=== PATIENT | female | born 1970 | race Caucasian/White ===

== ENCOUNTER → 2018-08-21 17:42 | Outpatient (CLI) | payer OTHER, SELFPAY ==
[2018-08-21 18:45] LABS: Alanine Aminotransferase 18 U/L (12-78); Albumin/Globulin Ratio 1.1 (1.1-1.8); Alkaline Phosphatase 81 U/L (46-116); Anion Gap 13.6 mEq/L (5-15); Aspartate Amino Transferase 8 U/L (15-37); Basophils % 0.3 % (0.1-2.0); Bilirubin,Total 0.3 mg/dL (0.2-1.0); Blood Urea Nitrogen 12 mg/dL (7-18); Carbon Dioxide 29 mmol/L (21.0-32.0); Chloride 101 mmol/L (98-107); Chol/HDL Ratio 5.1 (1-3.5); Cholesterol 197 mg/dL (140-200); Creatinine,Serum 0.65 mg/dL (0.55-1.02); Eosinophils # 0.3 K/mm3 (0.0-0.4); Estimated Glomerular Filt Rate 98 ml/min (>60); Free T4 (Free Thyroxine) 1.01 ng/dl (0.76-1.46); GFR (African American) 118 ML/MIN (>60); Globulin 3.8 gm/dl (1.3-3.2); Glucose 98 mg/dL (74-106); HDL Cholesterol 39 mg/dL (29-89); Hematocrit 40.3 % (37.0-47.0); Hemoglobin 13.1 g/dL (12.2-16.2); LDL Cholesterol 128 mg/dL (0-130); Lymphocytes # 2.3 K/mm3 (0.7-4.5); Lymphocytes % 27.2 % (10-50); Mean Corpuscular HGB Conc 32.5 g/dL (31.8-35.4); Mean Platelet Volume 7.7 fl (7.4-10.4); Monocytes # 0.5 K/mm3 (0.1-1.0); Monocytes % 5.5 % (1.7-9.3); Neutrophils # 5.3 K/mm3 (1.8-7.8); Platelet Count 268 K/mm3 (142-424); Potassium 3.6 mmoL/L (3.5-5.1); Red Blood Count 4.68 M/mm3 (4.20-5.40); Red Cell Distribution Width 12.5 % (11.5-17.5); Sodium 140 mmol/L (136-145); Thyroid Stimulating Hormone 2.72 uIU/ml (0.358-3.740); Total Protein,Serum 7.8 gm/dL (6.4-8.2); Triglycerides 148 mg/dL (30-200); VLDL Cholesterol 30 mg/dL (0-40); White Blood Count 8.4 K/mm3 (4.8-10.8)
[2018-08-24 08:08] LABS: Vitamin D 25 Hydroxy 14.5 ng/mL (30.0-100.0)
== END ==
PROVIDERS: Visit Provider Emergency Medicine
DX: R53.83 Other fatigue (principal); E66.9 Obesity, unspecified; N95.1 Menopausal and female climacteric states; R20.2 Paresthesia of skin; Z72.0 Tobacco use; Z79.899 Other long term (current) drug therapy
CPT/HCPCS: 80053; 80061; 82652; 84439; 84443; 85025

== ENCOUNTER → 2018-09-14 15:36 | Outpatient (CLI) | payer OTHER, SELFPAY ==
--- NOTE | 2018-09-14 15:39 | MM_ITS ---
MM Dig screening mamm BI w/CAD CAD Screening COMPARISON: None, this is baseline INDICATION: There is no personal or family history of breast cancer TECHNIQUE: Standard CC and MLO images were obtained. R2 CAD reviewed. FINDINGS: The breasts are composed primarily of fat with minimal scattered fibroglandular densities in each breast. There is an oval benign-appearing nodular density upper outer quadrant left breast. Since this is a baseline study recommend patient return for 6 month follow-up left breast assure stability of this benign-appearing nodular lesion. There Is no suspicious lesion and there are no suspicious microcalcifications. There are small nodes in both axilla. IMPRESSION: Fibrofatty parenchyma with asymmetric benign-appearing nodular density left breast BI-RADS Category: 3 Probably Benign Finding Short Term Follow-up RECOMMENDED FOLLOW-UP: 6M - 6 MONTH FOLLOW-UP (A letter has been sent to the patient regarding results of the study.)
== END ==
PROVIDERS: PCP Emergency Medicine; Visit Provider Emergency Medicine
DX: Z12.31 Encounter for screening mammogram for malignant neoplasm of breast (principal)
CPT/HCPCS: 77067

== ENCOUNTER → 2018-10-05 13:24 | Outpatient (CLI) | payer OTHER, SELFPAY ==
--- NOTE | 2018-10-05 13:31 | XR_ITS ---
EXAM: XR lumbar spine min 4V HISTORY: ITS.REASON: back pain ORDERING PHYSICIAN: Shai Tamayo MD PATIENT AGE: 48 years COMPARISON: None FINDINGS: Normal alignment. No fracture or dislocation. No lytic or blastic change. There is mild degenerative disc disease at L5-S1. There are bilateral tubal ligation clips IMPRESSION: Mild degenerative disc disease L5-S1
--- NOTE | 2018-10-05 13:31 | XR_ITS ---
EXAM: XR cervical spine 5V HISTORY: ITS.REASON: neck pain, numbness and tingling in arms and hands ORDERING PHYSICIAN: Shai Tamayo MD PATIENT AGE: 48 years COMPARISON: None FINDINGS: There is normal alignment. There is mild degenerative disc disease at C5-C6. There is minimal foraminal narrowing on the right at C5-C6. No fracture or dislocation. No lytic or blastic change. IMPRESSION: Mild degenerative disc disease C5-C6 with minimal right-sided foraminal narrowing at that level otherwise negative
== END ==
PROVIDERS: PCP Emergency Medicine; Visit Provider Emergency Medicine
DX: M54.9 Dorsalgia, unspecified (principal); M54.2 Cervicalgia
CPT/HCPCS: 72050; 72110

== ENCOUNTER 2019-10-20 00:36 | Emergency (ER) | payer MEDICAID, SELFPAY ==
[2019-10-20 00:37] VITALS: BP 126/84; PULSE 101; RESP 16; TEMP 36.8; O2SAT 93; BMI 35.4
--- NOTE | 2019-10-20 00:40 | PC.NURSE ---
pt stated she thought her blood sugar might be low. FSBS obtained 167
[2019-10-20 00:45] LABS: POC Glucose,Bedside 164 (70-110)
--- NOTE | 2019-10-20 01:01 | HMH.EDMCLR ---
ED Disposition Clinical Impression: Medical clearance for incarceration Disposition: Home, Self-Care Condition on Discharge: Good Instructions: DI for Drug Abuse and Drug Addiction Additional Instructions: see pcp for follow up Referrals: Shai Tamayo MD [Primary Care Provider] - - Critical Care Critical Care Time: No Attestation: On 10/20/19, the high probability of a clinically significant, sudden or life threatening deterioration of the following system(s) required my full and direct attention, intervention and personal management. The time I documented below is in addition to time spent performing reported procedures but includes the following listed in this critical care notation. Medical Decision Making - Medical Records Medical records reviewed: Yes: I reviewed the patient's medical records. - Ruperto Inquiry Pt receiving controlled substance: No Vital Signs: 10/20/19 00:37 Temperature 98.3 F Temperature Source Oral Pulse Rate [Left Radial] 101 H Respiratory Rate 16 Blood Pressure [Right Arm] 126/84 Blood Pressure Mean [Right Arm] 98 Blood Pressure Source [Right Arm] Automatic Cuff Blood Pressure Position [Right Arm] Sitting 02 Sat by Pulse Oximetry 93 L Oxygen Delivery Method Room Air - Lab Data Lab Results 10/20/19 00:42: POC Glucose 164 H Medical Clearance HPI - General Chief complaint: Medical Clearance Stated complaint: Medical Clearance Time Seen by Provider: 10/20/19 01:01 Mode of Arrival: Ambulatory Source of Information: Patient, Law Enforcement, Medical Record Limitations: No Limitations Description of Symptoms (Recalled from ER Triage Doc. by RN): pt brought in for medical clearance. pt denies any pain and stated she used heroine this morning. - History of Present Illness HPI Narrative: no specific c/o from pt complaint: medical clearance requested Onset (ago): day(s) Reason for Medical Clearance: intoxication Place: street Alleged Intoxication: Yes Traumatic Symptoms: denies traumatic injury Associated Symptoms: denies other symptoms Treatments Prior to Arrival: none Home medications: Home Medications Medication Instructions Recorded Confirmed buprenorphine 8 mg-naloxone 2 mg 1 tab SUBLINGUAL BID tab 08/21/18 10/15/18 sublingual tablet Cholecalciferol (Vitamin D3) 1,000 unit PO DAILY 10/15/18 10/15/18 [Vitamin D3 1,000 Unit Cap] Ergocalciferol (Vitamin D2) 50,000 unit PO QWEEK 10/15/18 10/15/18 [Drisdol] Previous Rx's Medication Instructions Recorded Azithromycin [Z-Alex 250mg Tab*] 250 mg PO UD DOSE PK #6 tab 04/01/19 predniSONE [Deltasone 10mg tablet] 10 mg PO BID 3 Days #6 tab 04/01/19 Allergies/Adverse reactions: Allergies Allergy/AdvReac Type Severity Reaction Status Date / Time From Penicillin V Potassium Allergy Unknown Uncoded 10/05/18 13:03 Penicillin Allergy Unknown Uncoded 10/05/18 13:03 [facility] History - Hepatitis A Screen Drug use history?: Yes High risk sexual behaviors?: No History of sexually transmitted infection?: No Currently employed?: No Childcare worker?: No Do you have indoor plumbing?: Yes Do you have electricity?: Yes Attestation statement:: This patient has been screened for Hepatitis A risk factors. I have reviewed the patient's past medical history: Yes Medical History: Reports:: Depression Denies:: Diabetes Mellitus Type 1, Diabetes Mellitus Type 2, Internal Pacemaker, Lung Disease, Seizures Comment: obesity Laterality Cases: Left: Carpal Tunnel Release Other Surgeries: Yes: Colonoscopy. No: Pacemaker Amputation: No Fractures: No Comment: P* C/S---2000. BTL---2001. COLONOSCOPY---2009. CARPAL TUNNEL RELEASE--LEFT HAND---2009 - Social History Smoking Status: Current every day smoker Tobacco Type: cigarettes # Packs/Day (cigarettes): 1 Alcohol Intake: never Alcohol Intake Frequency:: holidays/special occasions only Substance Use Type: heroin Last Used Substance: hours (
[2019-10-20 01:14] VITALS: BP 129/83; PULSE 91; RESP 16; TEMP 36.8; O2SAT 94
== END 2019-10-20 01:23 | disposition home or self-care (01) ==
PROVIDERS: Emergency Provider Emergency Medicine; PCP Emergency Medicine
DX: F11.129 Opioid abuse with intoxication, unspecified (principal); Z79.899 Other long term (current) drug therapy; F33.1 Major depressive disorder, recurrent, moderate; Z88.0 Allergy status to penicillin; F17.210 Nicotine dependence, cigarettes, uncomplicated
CPT/HCPCS: 36415; 82962; 99282

== ENCOUNTER → 2020-06-23 15:02 | Outpatient (CLI) | payer MEDICAID, SELFPAY ==
[2020-06-23 15:40] LABS: Basophils # 0.1 K/mm3 (0-0.2); Basophils % 0.6 % (0.1-2.0); Eosinophils # 0.3 K/mm3 (0.0-0.4); Eosinophils % 3.3 % (0.1-12.0); Hematocrit 39.9 % (37.0-47.0); Hemoglobin 13.1 g/dL (12.2-16.2); Lymphocytes # 2.4 K/mm3 (0.7-4.5); Lymphocytes % 25.9 % (10-50); Mean Corpuscular Hemoglobin 28.4 pg (27.0-31.2); Mean Corpuscular Volume 86.2 fl (81-99); Mean Platelet Volume 8.2 fl (7.4-10.4); Monocytes # 0.3 K/mm3 (0.1-1.0); Monocytes % 3.5 % (1.7-9.3); Neutrophils # 6.2 K/mm3 (1.8-7.8); Neutrophils % 66.7 % (37.0-80.0); Platelet Count 313 K/mm3 (142-424); Red Blood Count 4.63 M/mm3 (4.20-5.40); Red Cell Distribution Width 13.1 % (11.5-17.5); White Blood Count 9.4 K/mm3 (4.8-10.8)
[2020-06-23 15:50] LABS: Alanine Aminotransferase 15 U/L (12-78); Albumin Level 4.3 g/dl (3.5-5.0); Albumin/Globulin Ratio 1.3 (1.1-1.8); Alkaline Phosphatase 83 U/L (38-126); Anion Gap 9.4 mEq/L (5-15); Aspartate Amino Transferase 22 U/L (14-36); Bilirubin,Total 0.3 mg/dl (0.2-1.3); Blood Urea Nitrogen 15 mg/dl (7-17); Calcium 9.6 mg/dl (8.4-10.2); Carbon Dioxide 29 mmol/L (22.0-30.0); Chloride 106 mmol/L (98-107); Cholesterol 207 mg/dl (140-200); Estimated Glomerular Filt Rate 76 ml/min (>60); GFR (African American) 92 ML/MIN (>60); Globulin 3.2 g/dL (1.3-3.2); Glucose 107 mg/dl (74-100); HDL Cholesterol 52 mg/dl (40-60); Potassium 4.4 mmoL/L (3.5-5.1); Sodium 140 mmol/L (136-145); Total Protein,Serum 7.5 g/dl (6.3-8.2); Triglycerides 192 mg/dl (30-150); VLDL Cholesterol 38 mg/dL (0-40)
[2020-06-23 16:00] LABS: Direct LDL Cholesterol 128.34 mg/dL (100-129)
[2020-06-23 16:07] LABS: Free T4 (Free Thyroxine) 1.02 ng/dl (0.78-2.19)
[2020-06-23 16:08] LABS: 25-OH Vitamin D, Total 14.3 ng/mL (30-100)
[2020-06-23 16:20] LABS: Thyroid Stimulating Hormone 0.98 uIU/mL (0.465-4.68)
== END ==
PROVIDERS: Visit Provider Emergency Medicine
DX: E55.9 Vitamin D deficiency, unspecified (principal); E66.9 Obesity, unspecified; R60.0 Localized edema
CPT/HCPCS: 80053; 80061; 82306; 84439; 84443; 85025

== ENCOUNTER → 2020-07-01 15:57 | Outpatient (CLI) | payer MEDICAID, SELFPAY ==
--- NOTE | 2020-07-01 15:57 | MM_ITS ---
PROCEDURE: MM DIG SCREENING MAMM BI W/CAD Digital Breast Tomosynthesis Included CLINICAL INDICATION: screening There is no personal or family history of breast cancer. COMPARISON: MG DIG MAMM-SCREEN JIMI from 09/14/2018 TECHNIQUE: Standard CC and MLO images and 3D Tomosynthesis was obtained. R2 CAD reviewed. FINDINGS: The breasts are composed primarily of fat with minimal scattered fibroglandular densities in each breast. There is a stable smoothly marginated nodular lesion near the axillary tail breast likely a low-lying or intramammary node. There is no suspicious lesion in either breast and no suspicious microcalcifications. There are stable small nodes in both axilla. IMPRESSION: Fatty type breast parenchyma with no suspicious lesions seen BI-RAD Category: 2 Benign Finding(s) FOLLOW-UP: 1YR 1 Year Follow-up (A letter has been sent to the patient regarding results of the study.) Dictated by: Dr. Elver Correa MD 07/06/2020 08:48 Dr. Elver Correa MD in [place] 07/06/2020 08:48
== END ==
PROVIDERS: PCP Emergency Medicine; Visit Provider Emergency Medicine
DX: Z12.31 Encounter for screening mammogram for malignant neoplasm of breast (principal)
CPT/HCPCS: 77063; 77067

== ENCOUNTER → 2020-08-04 15:24 | Outpatient (CLI) | payer MEDICAID, SELFPAY | PROVIDERS: Visit Provider Nurse Practitioner Family | DX: R82.90 Unspecified abnormal findings in urine (principal); E55.9 Vitamin D deficiency, unspecified | CPT/HCPCS: 87086; 87088; 87186 ==

== ENCOUNTER 2020-12-05 15:46 | Emergency (ER) | payer MEDICAID, SELFPAY ==
[2020-12-05 15:46] VITALS: BP 131/89; PULSE 90; RESP 16; TEMP 37.1; O2SAT 98; BMI 31.8
[2020-12-05 16:00] VITALS: BP 131/89; PULSE 90; RESP 16; TEMP 37.1; O2SAT 98; BMI 31.8
--- NOTE | 2020-12-05 16:18 | XR_ITS ---
PROCEDURE INFORMATION: Exam: XR Left Foot Exam date and time: 12/05/2020 4:18 PM Age: 50 years old Clinical indication: Injury or trauma; Fall; Blunt trauma; Foot; Left TECHNIQUE: Imaging protocol: XR Left foot. Views: 3 or more views. COMPARISON: No relevant prior studies available. FINDINGS: Bones/joints: Suspected distal left fibular fracture better seen on concurrent ankle radiograph. No fracture identified in the foot. No malalignment. Soft tissues: Moderate soft tissue swelling about the ankle. IMPRESSION: No evidence of fracture in the foot
--- NOTE | 2020-12-05 16:18 | XR_ITS ---
PROCEDURE INFORMATION: Exam: XR Left Ankle Exam date and time: 12/05/2020 4:18 PM Age: 50 years old Clinical indication: Injury or trauma; Fall; Blunt trauma; Ankle; Left TECHNIQUE: Imaging protocol: XR Left ankle. Views: 3 or more views. COMPARISON: No relevant prior studies available. FINDINGS: Bones/joints: A nondisplaced oblique fracture is suspected through the distal left fibula. It appears to enter the ankle mortise. The ankle mortise is well aligned. Soft tissues: Moderate lateral soft tissue swelling IMPRESSION: Nondisplaced distal left fibular fracture suspected
--- NOTE | 2020-12-05 17:11 | HMH.EDUTC ---
[facility] [place] Clinical Impression: Closed fracture of left distal fibula Qualifiers: Encounter type: initial encounter Fracture morphology: unspecified fracture morphology Qualified Code(s): S82.832A - Other fracture of upper and lower end of left fibula, initial encounter for closed fracture Disposition: Hospice - Home Condition on Discharge: Good Instructions: How to Use Crutches, How to Take Care of Your Splint, Fibula Shaft Fracture Additional Instructions: Rest the extremity, apply ice for 15 minutes as tolerated three or four times per day, Elevate the extremity as tolerated while you are resting. Take ibuprofen for pain. I sent in a prescription to your pharmacy. Follow up with Dr. Benitez (orthopedics). Call his office on Monday morning to get an appointment. I put in a referral but you need to call his office and schedule an appointment. Follow up with your regular doctor. GO TO THE ER FOR ANY WORSENING SYMPTOMS Prescriptions: Ibuprofen [Ibuprofen 600mg Tablet] 600 mg PO Q6HP PRN #30 tab PRN Reason: Mild Pain Transmission Status: Received by [facility] Referrals: Shai Tamayo MD [Primary Care Provider] - Jose Benitez MD [Staff Physician] - Forms: Work/School Release Time of Disposition: 17:22 Medical Decision Making - Medical Records Medical records reviewed: No: I reviewed the patient's medical records. - Ruperto Inquiry Pt receiving controlled substance: No Vital Signs: 12/05/20 15:46 12/05/20 16:00 12/05/20 17:29 Temperature 98.7 F 98.7 F 98.7 F Temperature Source Oral Oral Pulse Rate 90 Pulse Rate [Radial] 90 90 Respiratory Rate 16 16 16 Blood Pressure 131/89 Blood Pressure [Right Arm] 131/89 131/89 Blood Pressure Mean [Right Arm] 103 103 Blood Pressure Source [Right Arm] Automatic Cuff Blood Pressure Position [Right Arm] Sitting Sitting 02 Sat by Pulse Oximetry 98 98 Oxygen Delivery Method Room Air - Radiology Data #1 Image(s): Ankle Image Reviewed: Yes I reviewed the patient's radiology image, Yes I have reviewed radiologist's interpretation Preliminary Findings: Abnormal PROCEDURE INFORMATION: Exam: XR Left Ankle Exam date and time: 12/05/2020 4:18 PM Age: 50 years old Clinical indication: Injury or trauma; Fall; Blunt trauma; Ankle; Left TECHNIQUE: Imaging protocol: XR Left ankle. Views: 3 or more views. COMPARISON: No relevant prior studies available. FINDINGS: Bones/joints: A nondisplaced oblique fracture is suspected through the distal left fibula. It appears to enter the ankle mortise. The ankle mortise is well aligned. Soft tissues: Moderate lateral soft tissue swelling IMPRESSION: Nondisplaced distal left fibular fracture suspected [facility] [place] - General Stated complaint: AO 12/05/20 lt foot pain Time Seen by Provider: 12/05/20 15:55 Mode of Arrival: Ambulatory Source of Information: Patient Description of Symptoms (Recalled from Triage Doc. by RN): C/O LT ANKLE PAIN STATES LAST NIGHT ROLLED LT ANKLE. SWELLING AND PAIN HEENT Symptoms (Recalled from RN notes): No Resp Symptoms (Recalled from RN notes): No Skin Symptoms (Recalled from RN notes): No MS Symptoms (Recalled from RN notes): Yes Functional Status (Recalled from RN notes): WNL - History of Present Illness Provider Complaint: She states that last night she tripped while going out her door (she missed a step down) and it caused her to twist her left ankle and fall. She has had left ankle and foot pain since then. She states that when she tried to walk this morning she had worse pain. - Related Data Previous Rx's Medication Instructions Recorded cholecalciferol (vitamin D3) 25 25 mcg PO DAILY #30 cap 06/26/20 mcg (1,000 unit) capsule ergocalciferol (vitamin D2) 1,250 1,250 mcg PO WEEKLY #5 cap 06/26/20 mcg (50,000 unit) capsule trazodone 50 mg tab
[2020-12-05 17:29] VITALS: BP 131/89; PULSE 90; RESP 16; TEMP 37.1; O2SAT 98
== END 2020-12-05 17:46 | disposition hospice, home (50) ==
PROVIDERS: Emergency Provider Nurse Practitioner Family; PCP Emergency Medicine
DX: S82.832A Other fracture of upper and lower end of left fibula, initial encounter for closed fracture (principal); X50.1XXA Overexertion from prolonged static or awkward postures, initial encounter; Y92.019 Unspecified place in single-family (private) house as the place of occurrence of the external cause; F17.210 Nicotine dependence, cigarettes, uncomplicated
CPT/HCPCS: 29515; 73610; 73630; 99203; G0463

== ENCOUNTER → 2020-12-08 15:17 | Outpatient (CLI) | payer MEDICAID, SELFPAY ==
--- NOTE | 2020-12-08 15:22 | XR_ITS ---
PROCEDURE: XR KNEE LT 3V CLINICAL INDICATION: fall on 12/04/20 Pain COMPARISON: No exams were available for comparison FINDINGS: Minimal osteoarthritic changes of the medial compartment No fracture or dislocation Other findings:None. IMPRESSION: No acute findings. Dictated by: Lane Souza MD 12/08/2020 15:32 Lane Souza MD in [place] 12/08/2020 15:32
== END ==
PROVIDERS: PCP Emergency Medicine; Visit Provider Orthopaedic Surgery
DX: M25.562 Pain in left knee (principal); W19.XXXA Unspecified fall, initial encounter
CPT/HCPCS: 73562

== ENCOUNTER → 2020-12-16 08:19 | Outpatient (CLI) | payer MEDICAID, SELFPAY ==
--- NOTE | 2020-12-16 08:23 | XR_ITS ---
PROCEDURE: XR ANKLE LT MIN 3V CLINICAL INDICATION: left distal fibula fx; in cast COMPARISON: CR XR ANKLE LT MIN 3V from 12/05/2020 FINDINGS: Cast has been placed. There is a nondisplaced fracture of distal fibula oblique in nature with good alignment. The ankle mortise is preserved. The joint spaces are well-preserved. No significant degenerative/arthritic changes. No erosive changes evident. Other findings:None. IMPRESSION: Good alignment status post closed reduction distal fibular fracture Dictated by: Lane Souza MD 12/16/2020 08:52 Lane Souza MD in [place] 12/16/2020 08:52
== END ==
PROVIDERS: PCP Emergency Medicine; Visit Provider Orthopaedic Surgery
DX: S82.832A Other fracture of upper and lower end of left fibula, initial encounter for closed fracture (principal)
CPT/HCPCS: 73610

== ENCOUNTER → 2020-12-30 09:38 | Outpatient (CLI) | payer MEDICAID, SELFPAY ==
--- NOTE | 2020-12-30 09:42 | XR_ITS ---
PROCEDURE: XR ANKLE LT MIN 3V CLINICAL INDICATION: left distal fibula fx; out of cast Follow-up fracture COMPARISON: CR XR ANKLE LT MIN 3V from 12/05/2020 CR XR ANKLE LT MIN 3V from 12/16/2020 FINDINGS: The cast has been removed. Nondisplaced distal fibular fracture once again noted. The fracture line is less distinct but slightly more prominent and may be due to the hyperemic process of early healing. The joint spaces are well-preserved. No significant degenerative/arthritic changes. No erosive changes evident. Other findings:The ankle mortise is preserved and non widened IMPRESSION: Good alignment nondisplaced oblique distal fibular fracture as described above. Dictated by: Lane Souza MD 12/30/2020 11:55 Lane Souza MD in [place] 12/30/2020 11:55
== END ==
PROVIDERS: PCP Emergency Medicine; Visit Provider Orthopaedic Surgery
DX: S82.832A Other fracture of upper and lower end of left fibula, initial encounter for closed fracture (principal)
CPT/HCPCS: 73610

== ENCOUNTER 2020-12-30 10:32 | Outpatient (RCR) | payer MEDICAID, SELFPAY | END 2020-12-30 11:20 | disposition home or self-care (01) | LOC: PT 10:32 | PROVIDERS: Visit Provider Orthopaedic Surgery | DX: S82.832D Other fracture of upper and lower end of left fibula, subsequent encounter for closed fracture with routine healing (principal) | CPT/HCPCS: 97760 ==

== ENCOUNTER → 2021-02-10 13:08 | Outpatient (CLI) | payer MEDICAID, SELFPAY ==
--- NOTE | 2021-02-10 13:17 | XR_ITS ---
PROCEDURE: XR ANKLE LT MIN 3V CLINICAL INDICATION: left distal fibula fx COMPARISON: CR XR ANKLE LT MIN 3V from 12/05/2020 CR XR ANKLE LT MIN 3V from 12/16/2020 CR XR ANKLE LT MIN 3V from 12/30/2020 FINDINGS: There is an oblique nondisplaced fracture involving the distal fibula. Fracture line its still visible but somewhat less apparent. Ankle mortise is preserved. The joint spaces are well-preserved. No significant degenerative/arthritic changes. No erosive changes evident. Other findings:None. IMPRESSION: Healing nondisplaced distal fibular fracture Dictated by: Lane Souza MD 02/10/2021 16:29 Lane Souza MD in [place] 02/10/2021 16:29
== END ==
PROVIDERS: PCP Emergency Medicine; Visit Provider Orthopaedic Surgery
DX: S82.832A Other fracture of upper and lower end of left fibula, initial encounter for closed fracture (principal)
CPT/HCPCS: 73610

== ENCOUNTER 2021-02-11 15:00 | Outpatient (RCR) | payer MEDICAID, SELFPAY ==
--- NOTE | 2021-01-04 09:57 | HMH.PTOPEV ---
PT Outpatient Evaluation Rehab PT Outpatient Evaluation Start: 01/04/21 08:05 Freq: Status: Active Protocol: Document 01/04/21 08:38 PHOSHAHNAZ (Rec: 01/04/21 08:49 PHORNE [id number]) Electronically Signed By Celso Kauffman, PT 01/04/21 08:38 Outpatient Therapy Subjective History Subjective History Pt is 50 year old female who presents s/p L distal fibula fracture ~1 mos ago. Pt reports she fell down 1 step going outside of her home and felt pain in her L ankle after the fall. Pt states her pain is intermittent and 2/10 this morning. She reports sharp pain at 5/10 at worse after standing too long. Pain is alleviated by propping her L foot up. Eval completed by Treva Santiago, SHARON. Chief Complaint Pain Symptom Type Sharp Symptoms Relieved By Rest/Positioning Symptoms Aggravated By Standing Prior Functional Limitations None Current Functional Limitations Standing,Recreation Activity Symptom Description Intermittent Level of pain today (0-10) 2 Pain scale - at its best (0-10) 1 Pain scale - at its worst (0-10) 5 Ankle/Foot Eval Palpation Tenderness left Ankle/Foot Palpation Findings Tenderness Ankle/Foot Palpation Overall Comment TTP L lateral malleolus ROM Ankle/Foot Dorsiflexion w/Knee Extended 3 Active Range Motion (degrees) Ankle/Foot Plantar Flexion Active Range 40 of Motion (degrees) Ankle/Foot Eversion Active Range of 5 Motion (degrees) Ankle/Foot Inversion Active Range of 30 Motion (degrees) Ankle/Foot ROM Limitations Pain Great Toe ROM Reason Not Measured Within Functional Limits MMT right Ankle Dorsiflexion Strength Grade 5 Normal Ankle Plantarflexion Strength Grade 5 Normal Foot Eversion Strength Grade 5 Normal Foot Inversion Strength Grade 5 Normal Ankle Dorsiflexors Muscle Tone Normal Description left Ankle Dorsiflexion Strength Grade 5 Normal Ankle Plantarflexion Strength Grade 5 Normal Foot Eversion Strength Grade 4 Good Foot Inversion Strength Grade 5 Normal Outpatient Therapy Assessment Impairments Problems/Impairmments Palpation Tenderness,Impaired Range of Motion,Impaired Strength,Impaired Standing, Subjective C/O Pain,Impaired Self Care/Self Management Prognosis R
--- NOTE | 2021-02-02 10:48 | HMH.RHREAS ---
Rehab Reassessment Rehab OP Re-assessment Start: 02/02/21 10:38 Freq: Status: Active Protocol: Document 02/02/21 10:40 LAVINIA (Rec: 02/02/21 10:44 LAVINIA [id number]) Electronically Signed By Celso Kauffman, PT 02/02/21 10:40 Rehab Re-assessment Subjective Subjective Pt reports less pain overall, remains mildly tender around the L ankle. Objective Objective Notes L ankle AROM (in deg): DF= 0- 14, PF= 0-38, INV= 0-25, EVER= 0-15 MMT L ankle grossly 5/5 except EVER= 4+/5 Assessment Progress Assessment Progressing as Expected Assessment Notes Improved AROM and strength, Continues to ambulate with antalgic gait at this time. Patient goals met ST,2,3,4,5 Goals Not Met LT,2,3,4,5 Revised Goals none Plan Plan Continue per initial POC. Frequency of Therapy 2 x/wk Duration of therapy 8 wks Time and Billing Re-Eval Time 15 Re-Eval Billing Units 1 PHYSICIAN CERTIFICATION: I certify the specified therapy services for Justina Rodriguez are required, authorized, and reviewed every 30 days.
== END 2021-02-11 15:05 | disposition home or self-care (01) ==
LOC: PT 15:00
PROVIDERS: PCP Emergency Medicine; Visit Provider Orthopaedic Surgery
DX: S82.832A Other fracture of upper and lower end of left fibula, initial encounter for closed fracture (principal)
CPT/HCPCS: 97010; 97014; 97110; 97140; 97163; 97164; G0283

== ENCOUNTER → 2022-01-19 10:20 | Outpatient (CLI) | payer MEDICAID, SELFPAY ==
[2022-01-19 16:15] LABS: Basophils # 0.1 K/mm3 (0-0.2); Eosinophils # 0.4 K/mm3 (0.0-0.4); Eosinophils % 4.6 % (0.1-12.0); Hematocrit 41.5 % (37.0-47.0); Hemoglobin 13.8 g/dL (12.2-16.2); Lymphocytes # 2.1 K/mm3 (0.7-4.5); Lymphocytes % 24.4 % (10-50); Mean Corpuscular HGB Conc 33.4 g/dL (31.8-35.4); Mean Corpuscular Hemoglobin 28.2 pg (27.0-31.2); Mean Corpuscular Volume 84.4 fl (81-99); Mean Platelet Volume 9.2 fl (7.4-10.4); Monocytes # 0.4 K/mm3 (0.1-1.0); Monocytes % 4.5 % (1.7-9.3); Neutrophils # 5.7 K/mm3 (1.8-7.8); Neutrophils % 65.5 % (37.0-80.0); Platelet Count 337 K/mm3 (142-424); Red Blood Count 4.91 M/mm3 (4.20-5.40); Red Cell Distribution Width 12.5 % (11.5-17.5); White Blood Count 8.6 K/mm3 (4.8-10.8)
[2022-01-19 16:19] LABS: Alanine Aminotransferase 18 U/L (12-78); Albumin Level 4.2 g/dl (3.5-5.0); Albumin/Globulin Ratio 1.4 (1.1-1.8); Alkaline Phosphatase 89 U/L (38-126); Anion Gap 15.5 mEq/L (5-15); Aspartate Amino Transferase 28 U/L (14-36); Bilirubin,Total 0.3 mg/dl (0.2-1.3); Blood Urea Nitrogen 11 mg/dl (7-17); Calcium 9.4 mg/dl (8.4-10.2); Carbon Dioxide 25 mmol/L (22.0-30.0); Chloride 101 mmol/L (98-107); Chol/HDL Ratio 4.4 (1-3.5); Cholesterol 217 mg/dl (140-200); Estimated Glomerular Filt Rate 106 ml/min (>60); GFR (African American) 128 ML/MIN (>60); Globulin 3.1 g/dL (1.3-3.2); Glucose 108 mg/dl (74-100); HDL Cholesterol 49 mg/dl (40-60); Potassium 4.5 mmoL/L (3.5-5.1); Sodium 137 mmol/L (136-145); Total Protein,Serum 7.3 g/dl (6.3-8.2); Triglycerides 124 mg/dl (30-150); VLDL Cholesterol 25 mg/dL (0-40)
[2022-01-19 16:30] LABS: Direct LDL Cholesterol 136.73 mg/dL (100-129)
[2022-01-19 16:35] LABS: Free T4 (Free Thyroxine) 1.08 ng/dl (0.78-2.19)
[2022-01-19 16:36] LABS: 25-OH Vitamin D, Total 28.3 ng/mL (30-100)
[2022-01-19 16:50] LABS: Thyroid Stimulating Hormone 2.05 uIU/mL (0.465-4.68)
[2022-01-19 17:06] LABS: Hemoglobin A1C 5.6 % (4.0-6.0)
== END ==
PROVIDERS: PCP Emergency Medicine; Visit Provider Emergency Medicine
DX: E55.9 Vitamin D deficiency, unspecified (principal); E66.9 Obesity, unspecified; Z68.35 Body mass index [BMI] 35.0-35.9, adult
CPT/HCPCS: 80053; 80061; 82306; 83036; 84439; 84443; 85025

== ENCOUNTER → 2022-03-24 11:17 | Outpatient (CLI) | payer MEDICAID, SELFPAY ==
--- NOTE | 2022-03-24 11:27 | XR_ITS ---
FINAL REPORT CLINICAL HISTORY: BILATERAL foot pain FINDINGS: Left foot Three views were obtained. There is no acute fracture or dislocation. The joint spaces appear normal. No soft tissue abnormality is identified. There is a small to moderate plantar spur. IMPRESSION: No acute process. Reviewed, Interpreted and Dictated by Brian Reyna MD Transcribed by Emeli Vargas Authenticated and [facility]
--- NOTE | 2022-03-24 11:27 | XR_ITS ---
FINAL REPORT CLINICAL HISTORY: BILATERAL foot pain FINDINGS: Right foot Three views were obtained. There is no acute fracture or dislocation. The joint spaces appear normal. No soft tissue abnormality is identified. There is a moderate plantar spur. IMPRESSION: No acute process. Reviewed, Interpreted and Dictated by Brian Reyna MD Transcribed by Emeli Vargas Authenticated and [facility]
== END ==
PROVIDERS: PCP Emergency Medicine; Visit Provider Nurse Practitioner Family
DX: M79.671 Pain in right foot (principal); M79.672 Pain in left foot
CPT/HCPCS: 73630

== ENCOUNTER 2022-03-31 09:04 | Day surgery (SDC) | payer MEDICAID, SELFPAY ==
[2022-03-31 09:25] VITALS: BP 148/76; PULSE 58; RESP 18; TEMP 36.4; O2SAT 99; BMI 33.6
--- NOTE | 2022-03-31 09:50 | P.PN_ITS ---
[facility] Disclaimer: The information contained in this section may have been updated after the patient was seen, as this information can be updated by other users. Medical History Hyperlipidemia Surgical History History of carpal tunnel surgery of left wrist History of section History of colonoscopy Hx of tubal ligation Family History Other Family history of cancer Family history of diabetes mellitus type II Social History Smoking Status: Current every day smoker tobacco type: cigarettes packs per day: 2 pack-years: 9 alcohol intake: never substance use type: former substance user, heroin and opiates counseling provided: support program current occupational status: disabled Travel in the last 8 weeks: None adopted: No caregiver/support person: No foster care: No household members: none housing: apartment lives independently: Yes marital status: single service: No [place] [facility]: No caffeine: No special beatriz needs: No agree to transfusion: No do you feel safe at home: Yes victim of physical abuse: No victim of emotional abuse: No victim of sexual abuse: No would you like helpful sources: No [facility] Anesthesia Checklist Patient Identification Patient Identification: Arm Band Structural Data Admitted From: Home Planned Operative Procedure/s: colonoscopy Consent for Planned Operative Procedure(s) Verified: Yes Verified Documents: Surgical Consent and History and Physical NPO Status Verified Time NPO: 00:00 Additional verifications Anesthesia Reactions: No Airway Assessment C-Spine Mobility Assessed: Yes TMJ Mobility Assessed: Yes Dentition: Good Dentition Neurological Assessment Level of Consciousness: Awake and Alert Anesthesia Plan Anesthesia Risk discussed: Yes Anesthesia Plan: Verified ASA Class: II Anesthesia Type: MAC
[2022-03-31 09:55] VITALS: O2SAT 99
--- NOTE | 2022-03-31 10:06 | HMH.SCOPE ---
Procedure: Date: 03/31/22 Patient Date of :: 1970 Procedure Performed:: Screening colonoscopy Indications:: Personal history of polyps Performing Provider:: Atif Penn MD Referring Provider:: Shai Tamayo Sedation:: Propofol Procedure:: After placing the patient in the left lateral decubitus position, the colonoscopy was gently inserted into the rectum and under direct visualization advanced to the cecum which was identified by transillumination in the right lower quadrant, identification of the ileocecal valve, appendiceal orifice, and cecal strap. Color, texture, mucosa, and anatomy of the colon were carefully examined with the scope. Findings:: Anal canal: normal Rectum: normal Sigmoid colon: normal without polyps or inflammatory changes, residual stool noted Descending colon: normal without polyps or inflammatory changes, residual stool noted Splenic flexure: normal Transverse colon: normal without polyps or inflammatory changes, residual stool noted Hepatic flexure: normal Ascending colon: normal without polyps or inflammatory changes, residual stool noted Cecum: normal Terminal ileum: not visualized Impression: Normal colonoscopy Prep less than optimal due to not completing the colon prep Specimens:: None Recommendations:: Repeat examination in about FIVE years or so, sooner if clinically indicated Complications:: None Estimated blood obtained (mL): 0
[2022-03-31 10:07] VITALS: BP 141/80; PULSE 78; RESP 16; TEMP 36.3; O2SAT 96
[2022-03-31 10:17] VITALS: BP 163/85; PULSE 63; RESP 18; O2SAT 98
[2022-03-31 10:27] VITALS: BP 141/75; PULSE 64; RESP 18; O2SAT 97
[2022-03-31 10:37] VITALS: BP 149/91; PULSE 64; RESP 18; O2SAT 97
== END 2022-03-31 11:03 | disposition home or self-care (01) ==
PROVIDERS: PCP Emergency Medicine; Visit Provider Internal Medicine Gastroenterology
PROC: 0DJD8ZZ Inspection of Lower Intestinal Tract, Via Natural or Artificial Opening Endoscopic (ICD-10-PCS; CPT 45378; principal; 2022-03-31 10:00)
DX: Z12.11 Encounter for screening for malignant neoplasm of colon (principal); Z86.010 Personal history of colon polyps; Z72.0 Tobacco use
CPT/HCPCS: 45378

== ENCOUNTER 2022-06-09 11:11 | Emergency (ER) | payer MEDICAID, SELFPAY ==
--- NOTE | 2022-06-09 11:25 | EXP.UTC ---
Discharge Plan Disposition Patient Disposition: Home, Self-Care Condition: Good Prescriptions Prescriptions: New azithromycin [Zithromax] 250 mg tablet 250 mg PO UD DOSE PK Qty: 6 0RF Rx Instructions: Take two (2) tablets today, then one (1) tablet days #2 thru #5 benzonatate [benzonatate] 100 mg capsule 100 mg PO TIDP PRN (Reason: Cough) Qty: 30 0RF prednisone 10 mg tablet 10 mg PO BID 4 Days Qty: 8 0RF No Action diclofenac sodium 1 % gel 4 g topical QID PRN (Reason: pain ) 30 Days Qty: 100 2RF Rx Instructions: apply to single, ankle, foot; for foot includes sole/toes/top of foot gabapentin 600 mg tablet 600 mg PO TID Qty: 90 2RF cholecalciferol (vitamin D3) 50 mcg (2,000 unit) capsule 50 mcg PO DAILY Qty: 90 3RF ergocalciferol (vitamin D2) 1,250 mcg (50,000 unit) capsule 1,250 mcg PO WEEKLY Qty: 13 3RF atorvastatin 10 mg tablet 10 mg PO HS meloxicam 7.5 mg tablet 7.5 mg PO DAILY Referrals Follow up/Referrals: Shai Tamayo MD [Primary Care Provider] - See instructions Activity Restrictions/Add. Instructions Additional Instructions/Restrictions: Drink plenty of fluids. Take tylenol or ibuprofen for pain or fever. Take the medications as directed. Follow up with your regular doctor. GO TO THE ER FOR ANY WORSENING SYMPTOMS Clinical Impressions Clinical Impression: Pharyngitis, Bronchitis Instructions Patient Instructions: DI for Pharyngitis/Tonsillopharyngitis -- Adult Discharge ED Provider: Juaquin Carlton [facility] General Stated complaint: Sore throat fever cough congestion drainage Time Seen by Provider: 06/09/22 11:25 History of Present Illness Provider Complaint: She states that for the past 2 days she has had a sore throat, sinus congestion and a cough. She has been exposed to strep throat in her home. Related Data Home Medications Medication Instructions Recorded Confirmed atorvastatin 10 mg tablet 10 mg PO HS Cholesterol 03/02/22 05/18/22 meloxicam 7.5 mg tablet 7.5 mg PO DAILY Pain 03/31/22 05/18/22 Previous Rx's Medication Instructions Recorded cholecalciferol (vitamin D3) 50 50 mcg PO DAILY vitamin D 02/14/22 mcg (2,000 unit) capsule deficiency #90 caps ergocalciferol (vitamin D2) 1,250 1,250 mcg PO WEEKLY vitamin D 02/14/22 mcg (50,000 unit) capsule deficiency #13 caps diclofenac sodium 1 % topical gel 4 g topical QID PRN pain 30 days 03/22/22 #100 grams gabapentin 600 mg tablet 600 mg PO TID #90 tabs 05/18/22 azithromycin 250 mg tablet 250 mg PO UD DOSE PK #6 tabs 06/09/22 (Zithromax) benzonatate 100 mg capsule 100 mg PO TIDP PRN Cough #30 caps 06/09/22 prednisone 10 mg tablet 10 mg PO BID 4 days #8 tabs 06/09/22 Allergies Allergy/AdvReac Type Severity Reaction Status Date / Time Penicillins Allergy Verified 03/22/22 14:28 [facility] Disclaimer: The information contained in this section may have been updated after the patient was seen, as this information can be updated by other users. Medical History Hyperlipidemia Surgical History History of carpal tunnel surgery of left wrist History of section History of colonoscopy Hx of tubal ligation Family History Other Family history of cancer Family history of diabetes mellitus type II Social History Smoking Status: Current every day smoker tobacco type: cigarettes packs per day: 2 pack-years: 9 alcohol intake: never substance use type: former substance user, heroin and opiates counseling provided: support program current occupational status: disabled Travel in the last 8 weeks: None adopted: No caregiver/support person: No foster care: No household members: none housing: apartment lives inde
[2022-06-09 11:26] VITALS: BP 142/73; PULSE 79; RESP 18; TEMP 36.8; O2SAT 99; BMI 32.8
[2022-06-09 11:38] LABS: UTC Strep Screen (Rapid) Negative (Negative)
[2022-06-09 12:09] VITALS: BP 140/70; PULSE 79; RESP 18; TEMP 36.8; O2SAT 99
== END 2022-06-09 12:17 | disposition home or self-care (01) ==
PROVIDERS: Emergency Provider Nurse Practitioner Family; PCP Emergency Medicine
DX: J40 Bronchitis, not specified as acute or chronic (principal); J02.9 Acute pharyngitis, unspecified
CPT/HCPCS: 87880; 99212; 99213; C9803; G0463; U0003; U0005

== ENCOUNTER → 2022-10-05 23:17 | Outpatient (CLI) | payer MEDICAID, SELFPAY | PROVIDERS: PCP Emergency Medicine; Visit Provider Emergency Medicine | DX: N39.0 Urinary tract infection, site not specified (principal) | CPT/HCPCS: 87086 ==

== ENCOUNTER 2023-04-26 16:59 | Outpatient (CLI) | payer MEDICAID, SELFPAY ==
[2023-04-26 12:15] LABS: Basophils # 0.1 K/mm3 (0-0.2); Basophils % 0.6 % (0.1-2.0); Eosinophils # 0.3 K/mm3 (0.0-0.4); Eosinophils % 4.2 % (0.1-12.0); Hematocrit 38.2 % (37.0-47.0); Hemoglobin 12.8 g/dL (12.2-16.2); Lymphocytes % 37.5 % (10-50); Mean Corpuscular HGB Conc 33.5 g/dL (31.8-35.4); Mean Corpuscular Hemoglobin 28.4 pg (27.0-31.2); Mean Corpuscular Volume 84.8 fl (81-99); Mean Platelet Volume 8.5 fl (7.4-10.4); Monocytes # 0.4 K/mm3 (0.1-1.0); Monocytes % 5.1 % (1.7-9.3); Neutrophils # 4.2 K/mm3 (1.8-7.8); Neutrophils % 52.6 % (37.0-80.0); Platelet Count 270 K/mm3 (142-424); Red Blood Count 4.51 M/mm3 (4.20-5.40); Red Cell Distribution Width 12.7 % (11.5-17.5)
[2023-04-26 13:19] LABS: Alanine Aminotransferase 15 U/L (12-78); Albumin Level 3.9 g/dl (3.5-5.0); Albumin/Globulin Ratio 1.6 (1.1-1.8); Alkaline Phosphatase 62 U/L (38-126); Anion Gap 11.4 mEq/L (5-15); Aspartate Amino Transferase 25 U/L (14-36); Bilirubin,Total 0.4 mg/dl (0.2-1.3); Blood Urea Nitrogen 14 mg/dl (7-17); Calcium 8.9 mg/dl (8.4-10.2); Carbon Dioxide 24 mmol/L (22.0-30.0); Chloride 103 mmol/L (98-107); Chol/HDL Ratio 4.7 (1-3.5); Cholesterol 198 mg/dl (140-200); Estimated Glomerular Filt Rate 88 ml/min (>60); GFR (African American) 106 ML/MIN (>60); Globulin 2.5 g/dL (1.3-3.2); Glucose 93 mg/dl (74-100); HDL Cholesterol 42 mg/dl (40-60); Potassium 4.4 mmoL/L (3.5-5.1); Sodium 134 mmol/L (136-145); Total Protein,Serum 6.4 g/dl (6.3-8.2); Triglycerides 95 mg/dl (30-150); VLDL Cholesterol 19 mg/dL (0-40)
[2023-04-26 13:30] LABS: Direct LDL Cholesterol 120.32 mg/dL (100-129)
[2023-04-26 13:42] LABS: 25-OH Vitamin D, Total 27.1 ng/mL (30-100)
[2023-04-26 13:49] LABS: Thyroid Stimulating Hormone 1.24 uIU/mL (0.465-4.68)
== END 2023-04-26 23:59 ==
LOC: LAB.DROPOF 17:00
PROVIDERS: PCP Nurse Practitioner Family; Visit Provider Nurse Practitioner Family
DX: E55.9 Vitamin D deficiency, unspecified (principal); E66.9 Obesity, unspecified; Z68.30 Body mass index [BMI] 30.0-30.9, adult; Z79.899 Other long term (current) drug therapy
CPT/HCPCS: 80053; 80061; 82306; 84443; 85025

== ENCOUNTER → 2023-05-18 14:35 | Outpatient (CLI) | payer MEDICAID, SELFPAY | LOC: SL 14:37 | PROVIDERS: PCP Nurse Practitioner Family; Visit Provider Nurse Practitioner Family | DX: G47.36 Sleep related hypoventilation in conditions classified elsewhere (principal); R06.83 Snoring | CPT/HCPCS: G0399 ==

== ENCOUNTER → 2023-06-18 20:18 | Outpatient (CLI) | payer MEDICAID, SELFPAY | LOC: SL 20:21 | PROVIDERS: PCP Nurse Practitioner Family; Visit Provider Nurse Practitioner Family | DX: G47.30 Sleep apnea, unspecified (principal); G47.36 Sleep related hypoventilation in conditions classified elsewhere; R40.0 Somnolence; R06.83 Snoring | CPT/HCPCS: 95810 ==

== ENCOUNTER 2023-07-26 13:51 | Outpatient (CLI) | payer MEDICAID, SELFPAY ==
--- NOTE | 2023-07-26 13:54 | XR_ITS ---
FINAL REPORT CLINICAL HISTORY: R Foot pain FINDINGS: Right foot Three views were obtained. There is no acute fracture or dislocation. There are mild degenerative changes at the 1st metatarsophalangeal joint. Plantar calcaneal spur is identified. No soft tissue abnormality is identified. IMPRESSION: Mild degenerative changes. Reviewed, Interpreted and Dictated by Derrek Travis III, MD Transcribed by Emeli Vargas Authenticated and [facility]
--- NOTE | 2023-07-26 13:54 | XR_ITS ---
FINAL REPORT CLINICAL HISTORY: Foot Pain FINDINGS: Left foot Three views were obtained. There is no acute fracture or dislocation. There are mild degenerative changes at the 1st metatarsophalangeal joint. Plantar calcaneal spur is identified. No soft tissue abnormality is identified. IMPRESSION: Mild degenerative changes. Reviewed, Interpreted and Dictated by Derrek Travis III, MD Transcribed by Emeli Vargas Authenticated and [facility]
--- NOTE | 2023-07-26 13:54 | XR_ITS ---
FINAL REPORT CLINICAL HISTORY: hypoxemia FINDINGS: Two views of the chest were obtained. The heart size and pulmonary vascularity are within normal limits. The mediastinum is normal. No acute pulmonary abnormality is identified. There is no pneumothorax. The bony thorax is intact. IMPRESSION: No active cardiopulmonary disease. Reviewed, Interpreted and Dictated by Derrek Travis III, MD Transcribed by Emeli Vargas Authenticated and [facility]
== END 2023-07-26 23:59 ==
LOC: RAD 13:52
PROVIDERS: PCP Nurse Practitioner Family; Visit Provider Specialist
DX: G47.36 Sleep related hypoventilation in conditions classified elsewhere (principal); R40.0 Somnolence; M79.671 Pain in right foot; M79.672 Pain in left foot; Z72.0 Tobacco use
CPT/HCPCS: 71046; 73630

== ENCOUNTER 2023-07-31 09:42 | Outpatient (CLI) | payer MEDICAID, SELFPAY ==
[2023-07-31 10:35] VITALS: PULSE 56; PULSE 62
[2023-07-31] MEDS: ALBUTEROL 0.083% 2.5 MG/3 ML NEB IH (10:35)
== END 2023-07-31 23:59 ==
LOC: RT 09:42
PROVIDERS: PCP Nurse Practitioner Family; Visit Provider Specialist
DX: G47.36 Sleep related hypoventilation in conditions classified elsewhere (principal); G47.33 Obstructive sleep apnea (adult) (pediatric); R40.0 Somnolence; E66.9 Obesity, unspecified; Z72.0 Tobacco use
CPT/HCPCS: 94060; 94618; 94640; 94726; 94729

== ENCOUNTER 2023-08-16 09:57 | Outpatient (CLI) | payer MEDICAID, SELFPAY ==
--- NOTE | 2023-08-16 09:57 | CA_ITS ---
FINAL REPORT TECHNIQUE: Color Doppler, duplex Doppler and paula scale sonography of the bilateral neck arterial vasculature was performed. Velocities were measured in the carotid arteries. Stenosis evaluation based on the validated velocity criteria. CLINICAL HISTORY: LT BRUIT,HLD,SMOKER FINDINGS: The peak systolic velocity of the right common carotid artery is 108 cm/s. The peak systolic velocity of the right internal carotid artery is 90 cm/s and end diastolic velocity 36 cm/s. The ICA/CCA ratio is 0.83. A minimal amount of plaque is present. The right external carotid artery is patent. The right vertebral artery is patent with antegrade flow. The peak systolic velocity of the left common carotid artery is 106 cm/s. The peak systolic velocity of the left internal carotid artery is 105 cm/s and end diastolic velocity 28 cm/s. The ICA/CCA ratio is 1.0. A minimal amount of plaque is present. The left external carotid artery is patent.The left vertebral artery is patent with antegrade flow. IMPRESSION: Less than 50% bilateral carotid stenoses. Bilateral patent vertebral arteries with antegrade flow. If indicated, CTA or MRA could further evaluate. Reviewed, Interpreted and Dictated by Brian Reyna MD Transcribed by Emeli Vargas Authenticated and [facility]
== END 2023-08-16 23:59 | disposition home or self-care (01) ==
LOC: RT 09:57
PROVIDERS: PCP Nurse Practitioner Family; Visit Provider Specialist
DX: R09.89 Other specified symptoms and signs involving the circulatory and respiratory systems (principal); Z72.0 Tobacco use; E66.9 Obesity, unspecified; Z68.31 Body mass index [BMI] 31.0-31.9, adult
CPT/HCPCS: 93880

== ENCOUNTER 2024-09-04 15:11 | Emergency (ER) | payer MEDICAID, SELFPAY ==
[2024-09-04 16:00] VITALS: BP 135/78; PULSE 80; RESP 18; TEMP 36.7; O2SAT 98; BMI 29.0
--- NOTE | 2024-09-04 16:35 | XR_ITS ---
PROCEDURE INFORMATION: Exam: XR Right Hand Exam date and time: 09/04/2024 4:39 PM Age: 54 years old Clinical indication: Pain; Hand; Right; Additional info: Cat bite TECHNIQUE: Imaging protocol: Radiologic exam of the right hand. Views: 3 or more views. COMPARISON: No relevant prior studies available. 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 No fracture or dislocation. Soft tissues: Mild diffuse soft tissue swelling. No radio opaque foreign bodies. IMPRESSION: Mild diffuse soft tissue swelling.
[2024-09-04] MEDS: DOXYCYCLINE HYCL 100 MG TABLET PO (17:31)
[2024-09-04] MEDS: RABIES VACCINE (PCEC)/PF 2.5 UNIT VIAL IM (17:31)
[2024-09-04] MEDS: TET/DIPHTH/PERT-ADULT 0.5ML SYRINGE 0.5 ML IM (17:32)
[2024-09-04] MEDS: RABIES IMMUNE GLOBULIN/PF 300 UNIT/ML 5ML VIAL 1600 UNIT IM (17:32)
--- NOTE | 2024-09-04 17:50 | ED_ITS ---
Discharge Plan Disposition Patient Disposition: Home, Self-Care Condition: Good Prescriptions Prescriptions: New doxycycline hyclate 100 mg tablet 100 mg PO BID 10 Days Qty: 20 0RF No Action buprenorphine-naloxone 8-2 mg tablet, sublingual 1 tab sublingual diclofenac sodium 1 % gel 4 g topical QID PRN (Reason: pain ) 30 Days Qty: 100 2RF Rx Instructions: apply to single, ankle, foot; for foot includes sole/toes/top of foot mupirocin 2 % ointment 1 applic topical BID 14 Days Qty: 15 0RF ketoconazole 2 % cream topical Patient Comments: APPLY UP TO 1 GRAM TO AFFECTED AREA TWICE DAILY gentamicin 0.1 % ointment topical Patient Comments: APPLY UP TO 2 GRAMS TO AFFECTED AREA TWICE DAILY DIRECTED. (DME) Mixing Container with Lid Misc See Rx Instructions .Route Rx Instructions: As directed Referrals Follow up/Referrals: Provider,Referral, MD [Primary Care Provider] - See instructions Activity Restrictions/Add. Instructions Additional Instructions/Restrictions: You were evaluated in the emergency department today. Please follow-up for your subsequent rabies shots on day 3, 7, 14. 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 Follow-up closely with your primary care provider for wound recheck. Return to the emergency department for new or worsening symptoms Clinical Impressions Clinical Impression: Cat bite of right hand, Cat scratch of right hand Stand Alone Forms Stand Alone Forms: Work/School Release Instructions Patient Instructions: DI for Cellulitis -- Adult, Animal Bites, DI for Rabies Vaccine, DI for Cat Bite Print Language Print Language: Greek Discharge ED Provider: Britta Hernandez General Adult HPI General Chief complaint: Animal Bite Stated complaint: bite from cat Time Seen by Provider: 09/04/24 16:26 Mode of Arrival: Family Vehicle Source of Information: Patient Description of Symptoms (Recalled from ER Triage Doc. by RN): Pt c/o infected cat bite to her R hand. States it happened yesterday and belives the cat is feral. History of Present Illness HPI narrative: This patient is a 54-year-old female who denies relevant past medical history presenting to the emergency department for evaluation with concern for cat bite and scratches to her right hand from a feral cat. She notes that a feral cat bit her and scratched her on the right hand when she was helping to attempt to catch it. This happened yesterday, and the redness, swelling, and pain have significant gotten worse since then and has started to extend up her hand. She states that pain is shooting up her right arm. No numbness, tingling, or other concerns. She has never had rabies vaccination and is not sure when her last tetanus shot was. Related Data Home Medications ?Medication ?Instructions ?Recorded ?Confirmed buprenorphine 8 mg-naloxone 2 mg 1 tab sublingual 09/21/22 03/06/24 sublingual tablet empty container (Mixing Container 02/12/24 03/06/24 with Lid) gentamicin 0.1 % topical ointment topical 02/12/24 03/06/24 ketoconazole 2 % topical cream applic topical 02/12/24 03/06/24 Previous Rx's ?Medication ?Instructions ?Recorded diclofenac sodium 1 % topical gel 4 g topical QID PRN pain 30 days 11/15/23 #100 grams mupirocin 2 % topical ointment 1 applic topical BID infection 14 03/09/24 days #15 grams doxycycline hyclate 100 mg tablet 100 mg PO BID 10 days #20 tabs 09/04/24 Allergies Allergy/AdvReac Type Severity Reaction Status Date / Time Penicillins Allergy Verified 03/06/24 14:59 [facility] Disclaimer: The information contained in this section may have been updated after the patient was seen, as this information can be updated by other users. Medical History Obesity Left carotid bruit Hyperlipidemia Surgical History History of carpal tunnel surgery of left wrist Hx of tubal ligation History of colonoscopy History of section Family History Other Cancer Diabetes Family history of cancer Family history of diabetes mellitus type II Hyperlipidemia Hypertension Stroke Thyroid disorder Social History Smoking Status: Current every day smoker tobacco type: cigarettes packs per day: 2 years smoked: 10 alcohol intake: current alcohol intake frequency: holidays/special occasions only substance use type: former substance user, heroin and opiates counseling provided: support program current occupational status: employed and disabled Travel in the last 8 weeks?: None adopted: No caregiver/support person: No foster care: No household members: family housing: house lives independently: Yes marital status: number of children: 2 service: No detention: No caffeine: No special beatriz needs: No agree to transfusion: No do you feel safe at home: Yes victim of physical abuse: No victim of emotional abuse: No victim of sexual abuse: No would you like helpful sources: No Have you lived/traveled outside [place] in past 30 days?: No Contact w/someone who lives/traveled outside [place] past 30 days?: No Exposure to someone with infectious disease in past 14 days?: No Do you have a fever (greater than 100.4 F or 38 C)?: No Have you tested positive for COVID-19?: No Exposed to someone with COVID-19 in past 14 days?: No Do you have a sore throat?: No Do you have a cough?: No Do you have any weakness?: No Do you have any diarrhea?: No Are you experiencing any unusual bleeding?: No Do you have any muscle aches/pain?: No Do you have any abdominal pain?: No Are you experiencing loss of taste or smell?: No Other Medical History Have you received the Flu Vaccine for this season: No Have you received the Pneumonia Vaccine: No ROS Obtained: Yes All systems reviewed & no additional complaints except as documented Physical Exam General General appearance: alert and in no apparent distress Head Head exam: atraumatic and normocephalic Eye Eye exam: Present normal appearance, PERRL and EOMI ENT ENT exam: Present normal exam, normal oropharynx, mucous membranes moist and normal external ear exam Neck Neck exam: Present normal inspection, full ROM and trachea midline; Absent tenderness Chest Chest inspection: Present normal inspection and symmetric chest wall rise; Absent tenderness Respiratory Respiratory exam: Present normal lung sounds bilaterally; Absent respiratory distress, wheezes, stridor or accessory muscle use Cardiovascular Cardiovascular exam: Present regular rate and normal rhythm Abdominal Exam Abdominal exam: Present soft; Absent distention, tenderness or guarding Extremities Exam Extremities exam: Present full ROM, tenderness, normal capillary refill and edema Expanded Upper Extremity Exam Right: Hand L/R back image: 2 1. Multiple scratches and puncture wounds 2. Redness and warmth Comment: Neurovascularly intact distally with intact range of motion Back Exam Back exam: Present normal inspection and full ROM; Absent tenderness Neurological Exam Neurological exam: Present alert, oriented X3, CN II-XII intact and normal gait; Absent motor sensory deficit Psychiatric Psychiatric exam: Present normal affect and normal mood Skin Skin exam: Present warm and dry Medical Decision Making Medical Records Medical records reviewed: Yes I reviewed the patient's medical records. Screening: Per USPSTF and CDC recommendations, given the prevalence of disease in our region, it is our hospital?s policy to screen for HIV and viral Hepatitis for all patients aged 18 and over and those with ongoing risk factors. Ruperto Inquiry Pt receiving controlled substance: No Vital Signs: 09/04/24 16:00 09/04/24 18:23 Temperature 98.0 F 98.0 F Temperature Source Oral Oral Pulse Rate 80 Pulse Rate [Right] 80 Respiratory Rate 18 18 Blood Pressure 135/78 Blood Pressure [Right Arm] 135/78 Blood Pressure Mean [Right Arm] 97 Blood Pressure Source Automatic Cuff Blood Pressure Source [Right Arm] Automatic Cuff Blood Pressure Position Sitting 02 Sat by Pulse Oximetry 98 Oxygen Delivery Method Room Air Room Air Lab Data Lab results reviewed: Yes I reviewed the patient's lab results. Orders (Tests/Meds): ED MEDICATIONS Discontinued Medications Generic Name Dose Route Start Last Admin Trade Name Freq PRN Reason Stop Dose Admin Doxycycline Hyclate 100 mg 09/04/24 16:51 09/04/24 17:31 Doxycycline Hycl 100 Mg Tablet PO 09/04/24 16:52 100 mg ONCE ONE Administration Rabies Immune Globulin 1,600 unit 09/04/24 16:54 09/04/24 17:32 Rabies Immune Globulin/Pf 300 Unit/Ml 5ml Vial IM 09/04/24 16:55 1,600 unit ONCE ONE Administration Rabies Vaccine 2.5 unit 09/04/24 16:49 09/04/24 17:31 Rabies Vaccine (Pcec)/Pf 2.5 Unit Vial IM 09/04/24 16:50 2.5 unit .ONCE ONE Administration Tetanus/Reduced Diphtheria/Acell Pertussis 0.5 ml 09/04/24 16:35 09/04/24 17:32 Tet/Diphth/Pert-Adult 0.5ml Syringe IM 09/04/24 16:36 0.5 ml .ONCE ONE Administration ORDERS Category Date Time Status Hand XR right minimum 3 views [XR hand RT min 3V] Stat Exams 09/04/24 16:35 Completed Medical Decision Narrative: In summary, this patient is a 54-year-old female presenting to the Emergency Department for evaluation of cat bites and scratches to the right hand with redness, warmth, and swelling. Differential diagnoses considered include but are not limited to infected cat bite, infected cat scratch, cellulitis, abscess, retained foreign body. Ruling out the most morbid conditions drove assessment. On exam, the patient has redness, warmth, and swelling of her right hand with multiple puncture wounds and scratches, but there is no palpable fluctuance or induration suggestive of abscess. Workup included x-rays of the right hand to evaluate for foreign body.. I independently interpreted x-ray prior to the radiologist read and noted no retained foreign body, no acute fracture. Please see their read for final interpretation. Informed consent was obtained and the patient consented to Tdap booster, rabies immunoglobulin injection, and rabies vaccination. Given cat bite and scratches as well as penicillin allergy, will treat with doxycycline. After injections, I feel the patient is appropriate for discharge with prescription for doxycycline, instructions for wound care and strict return precautions, and instructions to follow-up for further rabies vaccination. Critical Care Critical Care Time Critical Care Time: No
[2024-09-04 18:23] VITALS: BP 135/78; PULSE 80; RESP 18; TEMP 36.7; O2SAT 98
== END 2024-09-04 18:24 | disposition home or self-care (01) ==
PROVIDERS: Emergency Provider Emergency Medicine
DX: S61.451A Open bite of right hand, initial encounter (principal); W55.01XA Bitten by cat, initial encounter; Z23 Encounter for immunization
CPT/HCPCS: 73130; 90375; 90471; 90472; 90675; 90715; 96372; 99284